=== PATIENT | male | born 1945 | race Caucasian/White ===

== ENCOUNTER 2016-11-05 07:45 | Day surgery (SDC) | payer MEDICARE ==
[2016-11-03 14:40] LABS: BLOOD UREA NITROGEN 30 mg/dL (7-18)
[2016-11-03 14:44] LABS: ASPARTATE AMINO TRANSFERASE 20 U/L (15-37)
[~2016-11-05] VITALS: Ht 180.3 cm; Wt 92.0 kg
[~2016-11-05 07:45] MED LIST: ALPR0.254 PO; BIOT1CAP3 PO; BLUE5000 PO; CAFF200T38 PO; CART1TAB4 PO; CHOL20003 PO; FINA5TAB4 PO; Fish Oil PO; Garlic PO; LOSA50TA6 PO; ST JOHNS WART PO; TAMS0.4C2 PO; [UNRECOGNIZED DRUG - OTHER] PO
[2016-11-05 08:14] VITALS: BP 115/78
[2016-11-05] MEDS ORDERED: LACTATED RINGERS 1,000 ML IV SCH (08:17)
[2016-11-05] MEDS ORDERED: MIDAZOLAM 1 MG/ML, 2ML ONE (09:05)
[2016-11-05] MEDS ORDERED: FENTANYL PF 100 MCG/2ML ONE ×3 (09:05→11:16)
[2016-11-05] MEDS ORDERED: NEOSTIGMINE 1 MG/ML, 10ML ONE (09:41)
[2016-11-05] MEDS ORDERED: ONDANSETRON 2MG/ML, 2ML ONE (09:41)
[2016-11-05] MEDS ORDERED: CIPROFLOXACIN 400MG/200ML PMX ONE (09:41)
[2016-11-05] MEDS ORDERED: GLYCOPYRROLATE 0.2MG/1ML ONE (09:41)
[2016-11-05] MEDS ORDERED: ROCURONIUM 10 MG/ML ONE (09:41)
[2016-11-05] MEDS ORDERED: PROPOFOL 10 MG/ML, 20ML ONE (09:41)
[2016-11-05] MEDS ORDERED: SUCCINYLCHOLINE 20 MG/ML, 10ML ONE (09:41)
[2016-11-05] MEDS ORDERED: DEXAMETHASONE 4 MG/ML, 1ML ONE (09:41)
[2016-11-05] MEDS ORDERED: MITOMYCIN 40 MG, WATER FOR INJECTION,STERILE 40 ML in SYRINGE 1 EA INTVESIC ONE (10:00)
[2016-11-05] MEDS ORDERED: PROMETHAZINE 25 MG/ML, 1ML IV PRN (10:30)
[2016-11-05] MEDS ORDERED: ACETAMINOPHEN 325 MG TABLET PO PRN (10:30)
[2016-11-05] MEDS ORDERED: FENTANYL PF 100 MCG/2ML IV PRN (10:30)
[2016-11-05] MEDS ORDERED: HYDROmorphone 1 MG/ML, 1ML IV PRN (10:30)
[2016-11-05] MEDS ORDERED: OXYcodone 5 MG/5 ML ORAL.SOL UDC PO PRN (10:30)
[2016-11-05] MEDS ORDERED: OXYcodone/APAP 5/325MG TABLET PO PRN (11:00)
[2016-11-05] MEDS ORDERED: ONDANSETRON 2MG/ML, 2ML IV PRN (11:00)
[2016-11-05] MEDS ORDERED: ACETAMINOPHEN 325 MG TABLET ONE (11:16)
[2016-11-05] MEDS ORDERED: OXYcodone 5 MG/5 ML ORAL.SOL UDC ONE (11:16)
[2016-11-05] MEDS ORDERED: ACETAMINOPHEN 650 MG/20.3 ML UDC ONE (11:16)
[2016-11-05] MEDS ORDERED: PHENAZOPYRIDINE 200 MG TABLET ONE (17:54)
[2016-11-05] MEDS ORDERED: PHENAZOPYRIDINE 200 MG TABLET PO ONE (20:30)
== END 2016-11-05 19:20 | disposition home or self-care (01) ==
LOC: OUT 07:45
PROVIDERS: ATTEND Urology
DX: C67.9 Malignant neoplasm of bladder, unspecified (principal); I10 Essential (primary) hypertension; Z87.891 Personal history of nicotine dependence; R31.0 Gross hematuria; M19.90 Unspecified osteoarthritis, unspecified site; Z80.9 Family history of malignant neoplasm, unspecified; N40.1 Benign prostatic hyperplasia with lower urinary tract symptoms; R33.8 Other retention of urine
CPT/HCPCS: 36415; 51720; 52235; 80053; 81001; 87086; 88304; 88305; 93005; J0330; J0744; J1100; J2250; J2405; J2704; J2710; J3010; J7120; J3490

== ENCOUNTER 2020-05-24 08:00 | Outpatient (CLI) | payer MEDICARE ==
[~2020-05-24] VITALS: Ht 177.8 cm; Wt 75.8 kg
[~2020-05-24 08:00] MED LIST changes: -CAFF200T38 PO; +CAFF200T68 PO; +CHOL2000 PO; -CHOL20003 PO; +LOSA50TA14 PO; -LOSA50TA6 PO
[2020-05-24 14:33] LABS: BASOPHILS % (AUTO) 2 % (0-1); EOSINOPHILS % (AUTO) 4 % (1-7); LYMPHOCYTES % (AUTO) 17 % (22-44); MEAN CORPUSCULAR HEMOGLOBIN 27.6 pg (27.5-34.5); MEAN CORPUSCULAR HGB CONC 32.2 g/dL (33.2-36.2); MEAN PLATELET VOLUME 7.9 fL (7.4-10.4); MONOCYTES % (AUTO) 11 % (2-9); NEUTROPHILS % (AUTO) 66 % (42-75); PLATELET COUNT 324 x10^3/uL (130-400); RED BLOOD COUNT 4.37 x10^6/uL (4.38-5.82); RED CELL DISTRIBUTION WIDTH 21.5 % (9.4-14.8)
[2020-05-24 14:36] LABS: INTERNATIONAL NORMALIZED RATIO 1.2 (0.93-1.1); PROTHROMBIN TIME 12.7 Seconds (9.6-11.5)
[2020-05-24 14:37] LABS: MD NO
[2020-05-24 15:21] LABS: ALANINE AMINOTRANSFERASE 11 U/L (12-78); ALBUMIN 3.1 g/dL (3.4-5.0); ANION GAP 8 mmol/L (5-15); CALCIUM 9.3 mg/dL (8.5-10.1); CHLORIDE 114 mmol/L (98-107); CREATININE 1.37 mg/dL (0.7-1.3)
[2020-05-24 15:23] LABS: ALKALINE PHOSPHATASE 108 U/L (45-117); BILIRUBIN,TOTAL 0.4 mg/dL (0.2-1.0); TOTAL PROTEIN 6.8 g/dL (6.4-8.2)
[2020-05-27] MEDS ORDERED: ROPIvacaine/PF 0.2%, 20 ML ONE (10:47)
[2020-05-27] MEDS ORDERED: KETOROLAC 60 MG/2 ML ONE (10:47)
[2020-05-27] MEDS ORDERED: EPINEPHRINE 1 MG/ML, 1ML ONE (10:47)
[2020-05-27] MEDS ORDERED: TRANEXAMIC ACID 100 MG/ML, 10ML ONE (10:47)
[2020-05-27] MEDS ORDERED: SODIUM CHLORIDE 0.9% 50 ML ONE (10:47)
[2020-05-27] MEDS ORDERED: ATORVASTATIN PO (12:49)
[2020-05-27] MEDS ORDERED: SERT25TA3 PO (12:49)
[2020-05-27] MEDS ORDERED: RIVA20TA PO (12:49)
[2020-05-27] MEDS ORDERED: PLEASE ENTER HEIGHT AND WEIGHT MC SCH (13:00)
[2020-05-27] MEDS ORDERED: GABAPENTIN 300 MG CAPSULE PO ONE (13:00)
[2020-05-27] MEDS ORDERED: CHLORHEXIDINE 15 ML UDC MM ONE (13:00)
[2020-05-27] MEDS ORDERED: ACETAMINOPHEN 500 MG TABLET PO ONE (13:00)
[2020-05-27] MEDS ORDERED: VANCOMYCIN PER PHARMACY MC PRN (13:00)
[2020-05-27] MEDS ORDERED: VANCOMYCIN 1,500 MG in SODIUM CHLORIDE 0.9% 250 ML IV ONE (13:01)
[2020-05-27] MEDS ORDERED: FENTANYL PF 250 MCG/5ML ONE (13:05)
[2020-05-27 13:26] VITALS: BP 111/78
== END 2020-05-24 23:59 | disposition home or self-care (01) ==
LOC: STAR 08:00 → ORIP 05-27 12:17 → UNDOADMIN 05-27 12:17 → EDSTATUS 05-27 14:00
PROVIDERS: ATTEND Orthopaedic Surgery
DX: Z01.810 Encounter for preprocedural cardiovascular examination (principal); Z01.818 Encounter for other preprocedural examination; Z96.651 Presence of right artificial knee joint; Z79.01 Long term (current) use of anticoagulants; Z20.828 Contact with and (suspected) exposure to other viral communicable diseases
CPT/HCPCS: 36415; 80053; 83036; 85025; 85610; 85730; 87081; 87635; 87806; 93005; J0171; J1885; J2795; J3010; J3370; G0475; J7050